=== PATIENT | female | born 1985 | race Caucasian/White ===

== ENCOUNTER 2022-10-20 11:52 | Emergency (ER) | payer SELFPAY ==
[2022-10-20 12:59] VITALS: BP 118/75; PULSE 69; RESP 14; TEMP 36.8; O2SAT 99; BMI 43.8
--- NOTE | 2022-10-20 13:30 | ED_ITS ---
HPI - Allergic Reaction General: Chief complaint: Allergic Reaction Stated complaint: rash/ states poison emerald in Left Eye Time Seen by Provider: 10/20/22 12:31 Source: patient Mode of arrival: ambulatory Limitations: no limitations History of Present Illness: HPI narrative: Patient is a nice 37-year-old female who presents to ED today with a complaint of a poison emerald rash. She states 3 days ago she was exposed to poison emerald and is highly allergic. She states since then she has developed a rash to her face, extremities, anterior trunk. 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 She describes it as burning and pruritic. She has tried multiple [id number] and home remedy treatments without much relief. MD complaint: allergic reaction Onset (ago): day(s) Exposure: plant Associated symptoms: Reports no associated symptoms; Deny nausea or vomiting Severity: moderate Previous Allergic Reaction History: none Review of Systems Const: Denies: fever(s), chills, body aches, fatigue or malaise Eyes: Denies: change in vision or blurry vision Card: Denies: chest pain Resp: Denies: dyspnea GI: Denies: nausea or vomiting Musc: Denies: neck pain, back pain, extremity pain or joint pain Skin/Breast: Reports: rash and pruritus Neuro: Denies: numbness in extremities, weakness in extremities or sensory changes Physical Exam Const: COMMON NORMALS: no acute distress, patient oriented x3, no limitations, alert and well nourished Neuro: COMMON NORMALS: patient oriented x3 SENSORIUM/ORIENTATION: Yes alert Skin: NARRATIVE SKIN EXAM: scattered areas of erythema with some vesicles/weeping consistent with a plant dermatitis Course Vital Signs: Vital signs: Vital Signs Temperature 98.3 F 10/20/22 12:59 Pulse Rate 69 10/20/22 12:59 Respiratory Rate 14 10/20/22 12:59 Blood Pressure 118/75 10/20/22 12:59 Pulse Oximetry 99 10/20/22 12:59 Oxygen Delivery Me thod Room Air 10/20/22 12:59 MDM - Allergic Reaction Medical Decision Making Patient was given IM Kenalog and will be placed on prednisone taper at home. Discharge Plan Discharge Patient Disposition: Home Clinical Impression: Contact dermatitis due to poison emerald Condition: Stable Prescriptions: New prednisone 10 mg tablet 10 mg PO DAILY 12 Days Qty: 30 0RF Rx Instructions: Take 4 tabs on days 1-3, 3 tabs on days 4-6, 2 tabs on days 7-9, 1 tab on days 10-12 Discharge Orders: Discharge ED (Routine); Ordered 10/20/22 Ordered By: Bekah Arce Patient Instructions: Poison Emerald (ED), Poison Emerald, [place], and [place] - Adult Coding Level of Care Code ED Technical Adjuster for Gisselle Jean Baptiste
[2022-10-20] MEDS: triamcinolone 40 mg/mL SDV IM (13:44)
[2022-10-20 13:49] VITALS: BP 118/75; PULSE 69; RESP 14; TEMP 36.8; O2SAT 99
== END 2022-10-20 13:50 | disposition home or self-care (01) ==
PROVIDERS: Emergency Provider Physician Assistant
DX: L23.7 Allergic contact dermatitis due to plants, except food (principal)
CPT/HCPCS: 96372; 99284; J3301